=== PATIENT | female | born 1975 | race Caucasian/White ===

== ENCOUNTER → 2022-04-05 13:26 | Outpatient (BNVA) | payer OTHER, SELFPAY | PROVIDERS: Visit Provider Podiatrist Foot & Ankle Surgery | DX: S99.921A Unspecified injury of right foot, initial encounter (principal); S86.001A Unspecified injury of right Achilles tendon, initial encounter; S86.301A Unspecified injury of muscle(s) and tendon(s) of peroneal muscle group at lower leg level, right leg, initial encounter; X58.XXXA Exposure to other specified factors, initial encounter; Y93.01 Activity, walking, marching and hiking | CPT/HCPCS: 73610 ==

== ENCOUNTER 2022-04-05 14:32 | Outpatient (CLI) | payer OTHER, SELFPAY | END 2022-04-05 14:33 | disposition home or self-care (01) | LOC: SPT 14:32 | PROVIDERS: Visit Provider Podiatrist Foot & Ankle Surgery | DX: Z46.89 Encounter for fitting and adjustment of other specified devices (principal); S99.911D Unspecified injury of right ankle, subsequent encounter; X58.XXXD Exposure to other specified factors, subsequent encounter; M25.571 Pain in right ankle and joints of right foot | CPT/HCPCS: 97760; L4361 ==

== ENCOUNTER 2022-04-20 12:55 | Outpatient (CLI) | payer OTHER, SELFPAY ==
--- NOTE | 2022-04-20 13:45 | MR_ITS ---
WS: [id number] MRI RIGHT ANKLE without CONTRAST. COMPARISON: Radiograph 04/05/2022 Multiplanar, multisequence imaging is performed without contrast. No fracture or marrow edema. No osteochondral lesion. Ankle mortise is normal. Extensor and flexor te ndons are normal. Peroneal tendons and sheath are normal. No soft tissue edema or joint effusion. The ligament surrounding the ankle are all within normal limits. Normal Achilles tendon. MR/MR ankle RT wo con* [id number] IMPRESSION: Normal MRI RIGHT ankle.
== END 2022-04-20 12:56 | disposition home or self-care (01) ==
LOC: RAD 12:59
PROVIDERS: Visit Provider Podiatrist Foot & Ankle Surgery
DX: S86.011A Strain of right Achilles tendon, initial encounter (principal); X58.XXXA Exposure to other specified factors, initial encounter
CPT/HCPCS: 73721